=== PATIENT | male | born 1980 | race African-American/Black ===

== ENCOUNTER 2018-10-15 16:19 | Inpatient (IN) | payer OTHER ==
[2018-10-15 17:00] VITALS: BMI 21.0
--- NOTE | 2018-10-15 17:35 | HP ---
CIWA Score Nausea/Vomitin-Mild Nausea/No Vomiting Muscle Tremors: 4-Moderate,w/Arms Extend Anxiety: 4-Mod. Anxious/Guarded Agitation: 3 Paroxysmal Sweats: 1-Minimal Palms Moist Orientation: 1-Uncertain about Date Tacttile Disturbances: 0-None Auditory Disturbances: 0-None Visual Disturbances: 0-None Headache: 0-None Present CIWA-Ar Total Score: 14 - Admission Criteria OASAS Guidelines: Admission for Medically Managed Detox: Requires at least one of the followin. CIWA greater than 12 2. Seizures within the past 24 hours 3. Delirium tremens within the past 24 hours 4. Hallucinations within the past 24 hours 5. Acute intervention needed for co occurring medical disorder 6. Acute intervention needed for co occurring psychiatric disorder 7. Severe withdrawal that cannot be handled at a lower level of care (continued vomiting, continued diarrhea, abnormal vital signs) requiring intravenous medication and/or fluids 8. Admission ROS S - [facility] Chief Complaint: Alcohol withdrawal symptoms Allergies/Adverse Reactions: Allergies Allergy/AdvReac Type Severity Reaction Status Date / Time No Known Allergies Allergy Verified 10/15/18 17:12 History of Present Illness: 38 years old male with 20 years of alcohol dependence is seeking admission to detox. Patient has been to previous detox and reports 9 months of sobriety. Patient reports history of depression. He reports suicide attempt in 2012 and denies suicidal ideation at this time. Exam Limitations: No Limitations - Ebola screening Have you traveled outside of the country in the last 21 days: No Have you had contact with anyone from an Ebola affected area: No Have you been sick,other than usual withdrawal symptoms: No Do you have a fever: No - Review of Systems Constitutional: Chills, Loss of Appetite, Night Sweats, Changes in sleep EENT: reports: No Symptoms Reported Respiratory: reports: No Symptoms reported Cardiac: reports: No Symptoms Reported GI: reports: Nausea, Poor Appetite, Poor Fluid Intake, Abdominal cramping : reports: No Symptoms Reported Musculoskeletal: reports: Back Pain, Other (ankle pain) Integumentary: reports: Dryness, Flushing Neuro: reports: Headache, Tremors Endocrine: reports: No Symptoms Reported Hematology: reports: No Symptoms Reported Psychiatric: reports: Depressed Other Systems: Reviewed and Negative Patient History - Patient Medical History Hx Anemia: No Hx Asthma: No Hx Chronic Obstructive Pulmonary Disease (COPD): No Hx Cancer: No Hx Cardiac Disorders: No Hx Congestive Heart Failure: No Hx Hypertension: No Hx Hypercholesterolemia: No Hx Pacemaker: No HX Cerebrovascular Accident: No Hx Seizures: No Hx Dementia: No Hx Diabetes: No Hx Gastrointestinal Disorders: No Hx Genitourinary Disorders: No Hx Sexually Transmitted Disorders: No Hx Renal Disease (ESRD): No Hx Thyroid Disease: No Hx Human Immunodeficiency Virus (HIV): No (last 11/03) Hx Hepatitis C: No Hx Depression: Yes (Not on medication) Hx Suicide Attempt: Yes (Reports suicide in 2013. Denies suicidal ideation at this time) Hx Bipolar Disorder: No Hx Schizophrenia: Yes (Seroquel and Depakote) - Patient Surgical History Past Surgical History: Yes Hx Neurologic Surgery: No Hx Cataract Extraction: No Hx Cardiac Surgery: No Hx Lung Surgery: No Hx Abdominal Surgery: No Hx Appendectomy: No Hx Cholecystectomy: No Hx Genitourinary Surgery: No Hx Section: No Hx Orthopedic Surgery: No Other Surgical History: L:eft leg surgery 2014 Anesthesia Reaction: No - PPD History Previous Implant?: Yes Documented Results: Negative w/proof Implanted On Prior [facility] Admission?: Yes Date: 04/03/14 PPD to be Administered?: Yes - Reproductive History Patient is a Female of Child Bearing Age (11 -55 yrs old): No (Male) - Smoking Cessation Smoking history: Current every day smoker Have you smoked in the past 12 months: Yes Aproximately how many cigarettes per day: 10 Cigars Per Day: 0 Hx Chewing Tobacco Use: No Initiated information on smoking cessation: Yes 'Breaking Loose' booklet given: 10/15/18 - Substance & Tx. History Hx Alcohol Use: Yes Hx Substance Use: Yes Substance Use Type: Alcohol, Cocaine Hx Substance Use Treatment: Yes ([facility]) - Substances Abused Alcohol Route: Oral Frequency: Daily Amount used: 2 PINTS OF VODKA Age of first use: 17 Date of Last Use: 10/15/18 Cocaine Route: Smoking Frequency: Daily Amount used: $50-100 Age of first use: 27 Date of Last Use: 10/15/18 Family Disease History - Family Disease History Family Disease History: Heart Disease: Mother Admission Physical Exam BHS - Vital Signs Vital Signs: Vital Signs - 24 hr 10/15/18 16:55 Temperature 98.7 F Pulse Rate 86 Respiratory 18 Rate Blood Pressure 133/75 - Physical General Appearance: Yes: Moderate Distress, Tremorous, Sweating, Anxious HEENTM: Yes: EOMI, Normal ENT Inspection, Normal Voice, BRE Respiratory: Yes: Lungs Clear, Normal Breath Sounds, No Respiratory Distress Neck: Yes: Supple Breast: Yes: Breast Exam Deferred Cardiology: Yes: Regular Rhythm, Regular Rate Abdominal: Yes: Normal Bowel Sounds, Soft Genitourinary: Yes: Within Normal Limits Back: Yes: Normal Inspection Musculoskeletal: Yes: Within Normal Limits Extremities: Yes: Tremors Neurological: Yes: logger all round II-XII NML intact, Alert, Normal Mood/Affect Integumentary: Yes: Warm Lymphatic: Yes: Within Normal Limits - Diagnostic (1) Uncomplicated alcohol dependence Current Visit: Yes Status: Acute (2) Depression Current Visit: Yes Status: Chronic Qualifiers: Depression Type: unspecified Qualified Code(s): F32.9 - Major depressive disorder, single episode, unspecified (3) Cocaine dependence Current Visit: Yes Status: Chronic Qualifiers: Substance use status: uncomplicated Qualified Code(s): F14.20 - Cocaine dependence, uncomplicated (4) Nicotine dependence Current Visit: Yes Status: Chronic Qualifiers: Nicotine product type: cigarettes Substance use status: uncomplicated Qualified Code(s): F17.210 - Nicotine dependence, cigarettes, uncomplicated Cleared for Admission S - Detox or Rehab [facility] Level of Care: Medically Managed Detox Regimen/Protocol: Librium [facility] Breath Alcohol Content Breath Alcohol Content: 0 Urine Drug Screen - Results Drug Screen Negative: No Urine Drug Screen Results: NAMRATA-Cocaine
[2018-10-15] MEDS ORDERED: IBUPROFEN 400 MG TABLET (FP) PO PRN (17:59)
[2018-10-15] MEDS ORDERED: P-EPHED 60MG/TRIPROLIDI 2.5MG TABLET PO PRN (17:59)
[2018-10-15] MEDS ORDERED: chlordiazePOXIDE HCL 25 MG CAPSULE PO PRN (17:59)
[2018-10-15] MEDS ORDERED: MAGNESIUM CITRATE 300 ML BOTTLE PO PRN (17:59)
[2018-10-15] MEDS ORDERED: MENTHOL/PHENOL 1 EACH UD MM PRN (17:59)
[2018-10-15] MEDS ORDERED: LOPERAMIDE HCL 2 MG CAPSULE PO PRN (17:59)
[2018-10-15] MEDS ORDERED: MAGNESIUM HYDROX 2400MG/30ML ORAL SUSPENSION 30 ML CUP PO PRN (17:59)
[2018-10-15] MEDS ORDERED: MAG HYDROX/AL HYDROX/SIMETH 30 ML UNIT-DOSE CUP PO PRN (17:59)
[2018-10-15] MEDS ORDERED: NICOTINE POLACRILEX 2 MG GUM BC PRN (17:59)
[2018-10-15] MEDS ORDERED: ACETAMINOPHEN 325 MG TABLET (FP) PO PRN (17:59)
[2018-10-15] MEDS ORDERED: guaiFENesin/D-METHORPHAN HB 10 ML UNIT-DOSE CUPS PO PRN (17:59)
[2018-10-15] MEDS ORDERED: MELATONIN 5 MG TABLETS PO PRN (22:00)
[2018-10-15] MEDS ORDERED: THIAMINE HCL 100 MG TABLET (FP) PO SCH (22:00)
[2018-10-15] MEDS: chlordiazePOXIDE HCL 25 MG CAPSULE PO SCH (22:11)
[2018-10-16] MEDS: chlordiazePOXIDE HCL 25 MG CAPSULE PO SCH ×2 (06:06→10:31)
--- NOTE | 2018-10-16 08:49 | CONSULT ---
[facility] Psychiatric Consult - Data Date of interview: 10/16/18 Admission source: Self-referred Identifying data: Mr Thakkar is a 38 years old single black male, father of 2 children, unemployed with no source of income, homeless seeking detox treatment for alcohol and cocaine Substance Abuse History: Reports history of alcohol and cocaine use. Refer to addiction counselor's summary for further information Medical History: Unremarkable except for orthosurgry for fracture left leg in 2014. Smokes 10 cigarettes daily Psychiatric History: Reports that his first psychiatric contact was in 2010 when he was admitted to a hospital in [place] for auditory hallucinations , depression and suicidal ideations. He was diagnosed with schizoaffective Disorder, Bipolar type and started on psychotropic medications. Reports multiple subsequent admissions to various institutions including [facility] and most recently in 2013 to [facility]. Reports non adherence to OPD care and medications. Claims that he was on Seroquel 200 mg po BID and Depakote in the past. He is willing to resume Seroquel during this admission. Reports one previous suicidal attempt in 2012 by overdose on pills. At present, reports feeing depressed and sleeping poorly Physical/Sexual Abuse/Trauma History: Denies history of emotional, physical or sexual abuse s well as DV relationship. No service Mental Status Exam - Mental Status Exam Alert and Oriented to: Time, Place, Person Cognitive Function: Fair Patient Appearance: Well Groomed Mood: Depressed Affect: Appropriate Patient Behavior: Cooperative Speech Pattern: Clear Voice Loudness: Normal Thought Process: Intact, Goal Oriented Hallucinations: Denies Suicidal Ideation: Denies Homicidal Ideation: Denies Insight/Judgement: Poor Sleep: Poorly Appetite: Good Muscle strength/Tone: Normal Gait/Station: Normal Psychiatric Findings - Problem List ([place] 1, 2,3) (1) Schizoaffective disorder Current Visit: Yes Status: Chronic (2) Alcohol-induced mood disorder Current Visit: Yes Status: Acute (3) Alcohol-induced sleep disorder Current Visit: Yes Status: Acute (4) Uncomplicated alcohol dependence Current Visit: Yes Status: Acute (5) Cocaine dependence Current Visit: Yes Status: Acute Qualifiers: Substance use status: uncomplicated Qualified Code(s): F14.20 - Cocaine dependence, uncomplicated (6) Nicotine dependence Current Visit: Yes Status: Chronic Qualifiers: Nicotine product type: cigarettes Substance use status: uncomplicated Qualified Code(s): F17.210 - Nicotine dependence, cigarettes, uncomplicated - Initial Treatment Plan Initial Treatment Plan: 1) Start Seroquel 100 mg po HS(Reconsult for titration) . 2) Monitor progress
[2018-10-16] MEDS ORDERED: NICOTINE 14 MG/24 HOURS TOPICAL PATCH TD SCH (10:00)
[2018-10-16] MEDS ORDERED: PRENATAL VITAMINS W/ FOLIC ACID TABLET (FP) PO SCH (10:00)
[2018-10-16 11:17] LABS: ALBUMIN 3.6 g/dl (3.4-5.0); ALK PHOS 72 U/L (45-117); ANION GAP 5 MMOL/L (8-16); BILIRUBIN,TOTAL 0.3 mg/dL (0.2-1); BLOOD UREA NITROGEN 15 mg/dL (7-18); CHLORIDE 106 mmol/L (98-107); CO2 29 mmol/L (21-32); GLUCOSE,RANDOM 101 mg/dL (74-106); POTASSIUM 3.9 mmol/L (3.5-5.1); SGOT/AST 17 U/L (15-37); SGPT/ALT 23 U/L (13-61); SODIUM 140 mmol/L (136-145); TOT PROT 6.9 g/dl (6.4-8.2)
[2018-10-16 11:23] LABS: HEMATOCRIT 43.5 % (35.4-49); HEMOGLOBIN 14.4 GM/dL (11.7-16.9); MCH 27.2 pg (25.7-33.7); MCHC 33.1 g/dl (32.0-35.9); MEAN CELL VOLUME 82.2 fl (80-96); MEAN PLT VOLUME 8.6 fl (7.5-11.1); PLATELET COUNT 282 K/MM3 (134-434); RBC 5.29 M/mm3 (4.00-5.60); RDW 16.8 % (11.9-15.9); WHITE BLOOD COUNT 6.8 K/mm3 (4.0-10.0)
[2018-10-16 13:21] VITALS: BP 102/72; PULSE 73; TEMP 97.1
--- NOTE | 2018-10-16 14:15 | PN ---
S CIWA - CIWA Score Nausea/Vomitin-Mild Nausea/No Vomiting Muscle Tremors: 3 Anxiety: 1-Mildly Anxious Agitation: 2 Paroxysmal Sweats: 1-Minimal Palms Moist Orientation: 1-Uncertain about Date Tacttile Disturbances: 0-None Auditory Disturbances: 0-None Visual Disturbances: 0-None Headache: 2-Mild CIWA-Ar Total Score: 11 S Progress Note (SOAP) Subjective: headaches tremor sweating Objective: 10/16/18 14:15 Vital Signs Temperature 97.1 F L 10/16/18 13:20 Pulse Rate 73 10/16/18 13:20 Respiratory Rate 18 10/16/18 13:20 Blood Pressure 102/72 10/16/18 13:20 O2 Sat by Pulse Oximetry (%) Laboratory Last Values WBC 6.8 K/mm3 (4.0-10.0) 10/16/18 07:20 RBC 5.29 M/mm3 (4.00-5.60) 10/16/18 07:20 Hgb 14.4 GM/dL (11.7-16.9) 10/16/18 07:20 Hct 43.5 % (35.4-49) 10/16/18 07:20 MCV 82.2 fl (80-96) 10/16/18 07:20 MCH 27.2 pg (25.7-33.7) 10/16/18 07:20 MCHC 33.1 g/dl (32.0-35.9) 10/16/18 07:20 RDW 16.8 % (11.9-15.9) H 10/16/18 07:20 Plt Count 282 K/MM3 (134-434) D 10/16/18 07:20 MPV 8.6 fl (7.5-11.1) 10/16/18 07:20 Sodium 140 mmol/L (136-145) 10/16/18 07:20 Potassium 3.9 mmol/L (3.5-5.1) 10/16/18 07:20 Chloride 106 mmol/L (98-107) 10/16/18 07:20 Carbon Dioxide 29 mmol/L (21-32) 10/16/18 07:20 Anion Gap 5 MMOL/L (8-16) L 10/16/18 07:20 BUN 15 mg/dL (7-18) 10/16/18 07:20 Creatinine 1.0 mg/dL (0.55-1.3) 10/16/18 07:20 Creat Clearance w eGFR > 60 (>60) 10/16/18 07:20 Random Glucose 101 mg/dL (74-106) 10/16/18 07:20 Calcium 9.0 mg/dL (8.5-10.1) 10/16/18 07:20 Total Bilirubin 0.3 mg/dL (0.2-1) 10/16/18 07:20 AST 17 U/L (15-37) 10/16/18 07:20 ALT 23 U/L (13-61) 10/16/18 07:20 Alkaline Phosphatase 72 U/L (45-117) 10/16/18 07:20 Total Protein 6.9 g/dl (6.4-8.2) 10/16/18 07:20 Albumin 3.6 g/dl (3.4-5.0) 10/16/18 07:20 RPR Titer Nonreactive (NONREACTIVE) 10/16/18 07:20 lab noted Assessment: 10/16/18 14:16 withdrawal sx Plan: continue detox
--- NOTE | 2018-10-16 16:53 | DS ---
[facility] Detox Discharge Summary Admission Date: 10/15/18 Discharge Date: 10/16/18 - History Present History: Alcohol Dependence, Cocaine Dependence Additional Comments: Patient admitted with alcohol withdrawal symptoms. Pertinent Past History: Patient w/ a hx of alcohol use disorder requesting alcohol detox. Patient w/ co-occurring cocaine and nicotine use. Hx depression w/o thoughts of harming self or others. - Physical Exam Results Vital Signs: Vital Signs Temperature 97.1 F L 10/16/18 13:20 Pulse Rate 73 10/16/18 13:20 Respiratory Rate 18 10/16/18 13:20 Blood Pressure 102/72 10/16/18 13:20 O2 Sat by Pulse Oximetry (%) Pertinent Admission Physical Exam Findings: Patient w/ a hx of alcohol use disorder admitted for alcohol detox. Patient w/ co-occurring cocaine and nicotine use. Hx depression w/o thoughts of harming self or others. Laboratory Last Values WBC 6.8 K/mm3 (4.0-10.0) 10/16/18 07:20 RBC 5.29 M/mm3 (4.00-5.60) 10/16/18 07:20 Hgb 14.4 GM/dL (11.7-16.9) 10/16/18 07:20 Hct 43.5 % (35.4-49) 10/16/18 07:20 MCV 82.2 fl (80-96) 10/16/18 07:20 MCH 27.2 pg (25.7-33.7) 10/16/18 07:20 MCHC 33.1 g/dl (32.0-35.9) 10/16/18 07:20 RDW 16.8 % (11.9-15.9) H 10/16/18 07:20 Plt Count 282 K/MM3 (134-434) D 10/16/18 07:20 MPV 8.6 fl (7.5-11.1) 10/16/18 07:20 Sodium 140 mmol/L (136-145) 10/16/18 07:20 Potassium 3.9 mmol/L (3.5-5.1) 10/16/18 07:20 Chloride 106 mmol/L (98-107) 10/16/18 07:20 Carbon Dioxide 29 mmol/L (21-32) 10/16/18 07:20 Anion Gap 5 MMOL/L (8-16) L 10/16/18 07:20 BUN 15 mg/dL (7-18) 10/16/18 07:20 Creatinine 1.0 mg/dL (0.55-1.3) 10/16/18 07:20 Creat Clearance w eGFR > 60 (>60) 10/16/18 07:20 Random Glucose 101 mg/dL (74-106) 10/16/18 07:20 Calcium 9.0 mg/dL (8.5-10.1) 10/16/18 07:20 Total Bilirubin 0.3 mg/dL (0.2-1) 10/16/18 07:20 AST 17 U/L (15-37) 10/16/18 07:20 ALT 23 U/L (13-61) 10/16/18 07:20 Alkaline Phosphatase 72 U/L (45-117) 10/16/18 07:20 Total Protein 6.9 g/dl (6.4-8.2) 10/16/18 07:20 Albumin 3.6 g/dl (3.4-5.0) 10/16/18 07:20 RPR Titer Nonreactive (NONREACTIVE) 10/16/18 07:20 Labs reviewed. - Treatment Hospital Course: Detox Protocol Followed (Patient did noot complete detox.), Discharged Condition Good (Alert and oriented upon discharge. Gait steady w/ use of own personal cane.) - Medication Discharge Medications: Ambulatory Orders Quetiapine Fumarate [Seroquel -] 200 mg PO BID #60 tablet 12/24/14 - Diagnosis (1) Alcohol dependence with uncomplicated withdrawal Current Visit: Yes Status: Acute (2) Cocaine dependence Current Visit: Yes Status: Chronic Qualifiers: Substance use status: uncomplicated Qualified Code(s): F14.20 - Cocaine dependence, uncomplicated (3) Nicotine dependence Current Visit: Yes Status: Chronic Qualifiers: Nicotine product type: cigarettes Substance use status: uncomplicated Qualified Code(s): F17.210 - Nicotine dependence, cigarettes, uncomplicated - AMA Did Patient Leave Against Medical Advice: Yes (Refused to stay and offers of referral declined. )
[2018-10-16] MEDS ORDERED: chlordiazePOXIDE HCL 25 MG CAPSULE PO SCH (23:00)
[2018-10-17] MEDS ORDERED: chlordiazePOXIDE 5 MG CAPSULE PO SCH (23:00)
[2018-10-18] MEDS ORDERED: chlordiazePOXIDE HCL 10 MG CAPSULE PO SCH (23:00)
== END 2018-10-16 16:52 | disposition left against medical advice (07) | DRG 770 ==
LOC: YASAS 16:19 → Y3N 18:16
PROVIDERS: ADMIT Neuromusculoskeletal Medicine & OMM; ATTEND Neuromusculoskeletal Medicine & OMM
PROC: HZ2ZZZZ Detoxification Services for Substance Abuse Treatment (ICD-10-PCS; principal; 2018-10-15)
DX: F10.230 Alcohol dependence with withdrawal, uncomplicated (principal); F10.24 Alcohol dependence with alcohol-induced mood disorder; F10.282 Alcohol dependence with alcohol-induced sleep disorder; F14.20 Cocaine dependence, uncomplicated; F17.210 Nicotine dependence, cigarettes, uncomplicated; F25.9 Schizoaffective disorder, unspecified; F32.9 Major depressive disorder, single episode, unspecified; Z91.5 Personal history of self-harm
CPT/HCPCS: 36415; 80053; 85027; 86593; 87389

== ENCOUNTER 2019-06-07 11:23 | Inpatient (IN) | payer SELFPAY ==
[2019-06-07 11:57] VITALS: BMI 24.3
--- NOTE | 2019-06-07 12:54 | HP ---
CIWA Score Nausea/Vomitin-No Nausea/No Vomiting Muscle Tremors: None Anxiety: 2 Agitation: 2 Paroxysmal Sweats: No Perspiration Orientation: 0-Oriented Tacttile Disturbances: 0-None Auditory Disturbances: 2-Mild Harshness/Frighten Visual Disturbances: 0-None Headache: 2-Mild CIWA-Ar Total Score: 8 - Admission Criteria OASAS Guidelines: Admission for Medically Managed Detox: Requires at least one of the followin. CIWA greater than 12 2. Seizures within the past 24 hours 3. Delirium tremens within the past 24 hours 4. Hallucinations within the past 24 hours 5. Acute intervention needed for co occurring medical disorder 6. Acute intervention needed for co occurring psychiatric disorder 7. Severe withdrawal that cannot be handled at a lower level of care (continued vomiting, continued diarrhea, abnormal vital signs) requiring intravenous medication and/or fluids 8. Admission ROS S - [facility] Chief Complaint: alcohol detox Allergies/Adverse Reactions: Allergies Allergy/AdvReac Type Severity Reaction Status Date / Time No Known Allergies Allergy Verified 06/07/19 11:50 History of Present Illness: Patient is a 39 yo M with hx of schizophrenia, depression, presenting here for alcohol detox. Drinks 1 pint of vodka daily, with 6-12oz of beer daily. Has been drinking for 20 years. Last drink yesterday around 10pm. No hx of seizures. Multiple blackouts, last one being 6 months ago. Was here yesterday but says he was denied admission due to no rooms. Says he was referred here through his parole. Says he wants to get cleaned up. Last detox per patient was in September. Currently unemployed. Lives in an apartment with a roommate. Also smokes crack/cocaine daily. 60-100 dollars worth. Smokies 1/2-1 pack a day cigarettes. Exam Limitations: No Limitations - Ebola screening Have you traveled outside of the country in the last 21 days: No Have you had contact with anyone from an Ebola affected area: No Do you have a fever: No - Review of Systems Constitutional: Loss of Appetite Respiratory: denies: Shortness of Breath Cardiac: denies: Chest Pain, Palpitations Patient History - Patient Medical History Hx Anemia: No Hx Asthma: No Hx Chronic Obstructive Pulmonary Disease (COPD): No Hx Cancer: No Hx Cardiac Disorders: No Hx Congestive Heart Failure: No Hx Hypertension: No Hx Hypercholesterolemia: No Hx Pacemaker: No HX Cerebrovascular Accident: No Hx Seizures: No Hx Dementia: No Hx Diabetes: No Hx Gastrointestinal Disorders: No Hx Genitourinary Disorders: No Hx Sexually Transmitted Disorders: No Hx Renal Disease (ESRD): No Hx Thyroid Disease: No Hx Human Immunodeficiency Virus (HIV): No (last 11/03) Hx Hepatitis C: No Hx Depression: Yes (Not on medication) Hx Suicide Attempt: Yes (Reports suicide in 2012. Denies suicidal ideation at this time) Hx Bipolar Disorder: No Hx Schizophrenia: Yes (Seroquel and Depakote) - Patient Surgical History Past Surgical History: Yes Hx Neurologic Surgery: No Hx Cataract Extraction: No Hx Cardiac Surgery: No Hx Lung Surgery: No Hx Breast Surgery: No Hx Breast Biopsy: No Hx Abdominal Surgery: No Hx Appendectomy: No Hx Cholecystectomy: No Hx Genitourinary Surgery: No Hx Section: No Hx Orthopedic Surgery: No Other Surgical History: L:eft leg surgery 2014 Anesthesia Reaction: No - PPD History Date: 04/03/14 - Smoking Cessation Smoking history: Current every day smoker Have you smoked in the past 12 months: Yes Aproximately how many cigarettes per day: 10 Cigars Per Day: 0 Hx Chewing Tobacco Use: No Initiated information on smoking cessation: Yes 'Breaking Loose' booklet given: 06/07/19 - Substances abused Alcohol Substance route: Oral Frequency: Daily Amount used: 6pks & 2 pints vodka Age of first use: 15 Date of last use: 06/06/19 Crack Substance route: Smoking Frequency: Daily Amount used: $50-$100 Age of first use: 27 Date of last use: 06/06/19 Family Disease History - Family Disease History Family Disease History: Heart Disease: Mother Admission Physical Exam S - Vital Signs Vital Signs: Vital Signs - 24 hr 06/07/19 11:50 Temperature 97.7 F Pulse Rate 70 Respiratory 20 Rate Blood Pressure 122/71 - Physical General Appearance: Yes: No Apparent Distress Respiratory: Yes: No Respiratory Distress, No Accessory Muscle Use Cardiology: Yes: Regular Rhythm, S1, S2 Abdominal: Yes: Non Tender, Soft Integumentary: Yes: Within Normal Limits - Diagnostic (1) Alcohol dependence Current Visit: No Status: Acute (2) Alcohol dependence with uncomplicated withdrawal Current Visit: No Status: Acute (3) Cocaine dependence Current Visit: No Status: Chronic Qualifiers: Substance use status: uncomplicated Qualified Code(s): F14.20 - Cocaine dependence, uncomplicated (4) Depression Current Visit: No Status: Chronic Qualifiers: Depression Type: unspecified Qualified Code(s): F32.9 - Major depressive disorder, single episode, unspecified (5) Nicotine dependence Current Visit: No Status: Chronic Qualifiers: Nicotine product type: cigarettes Substance use status: uncomplicated Qualified Code(s): F17.210 - Nicotine dependence, cigarettes, uncomplicated (6) Schizoaffective disorder Current Visit: No Status: Chronic Breathalyzer - Breathalyzer Breathalyzer: 0 Urine Drug Screen - Test Device Lot number: [id number] Expiration date: 02/17/21 - Control Is test valid?: Yes - Results Drug screen NEGATIVE: No Urine drug screen results: THC-Marijuana, NAMRATA-Cocaine Inpatient Rehab Admission - Rehab Decision to Admit Inpatient rehab admission?: No
[2019-06-07] MEDS ORDERED: METHOCARBAMOL 500 MG TABLET PO PRN (13:06)
[2019-06-07] MEDS ORDERED: MAGNESIUM HYDROX 2400MG/30ML ORAL SUSPENSION 30 ML CUP PO PRN (13:06)
[2019-06-07] MEDS ORDERED: MENTHOL/PHENOL 1 EACH UD MM PRN (13:06)
[2019-06-07] MEDS ORDERED: MELATONIN 5 MG TABLETS PO PRN (13:06)
[2019-06-07] MEDS ORDERED: ACETAMINOPHEN 325 MG TABLET (FP) PO PRN ×2 (13:06)
[2019-06-07] MEDS ORDERED: BISMUTH SUBSALICYLATE 524 MG/30 ML UD PO PRN (13:06)
[2019-06-07] MEDS ORDERED: MAG HYDROX/AL HYDROX/SIMETH 30 ML UNIT-DOSE CUP PO PRN (13:06)
[2019-06-07] MEDS ORDERED: chlordiazePOXIDE HCL 25 MG CAPSULE PO PRN (13:06)
[2019-06-07] MEDS ORDERED: MAGNESIUM CITRATE 300 ML BOTTLE PO PRN (13:06)
[2019-06-07] MEDS ORDERED: IBUPROFEN 400 MG TABLET (FP) PO PRN (13:06)
[2019-06-07] MEDS ORDERED: hydrOXYzine PAMOATE 25 MG CAPSULE (FP) PO PRN (13:06)
--- NOTE | 2019-06-07 13:53 | PN ---
Teaching Attending Note Name of Resident: Jorgito Diehl ATTENDING PHYSICIAN STATEMENT I saw and evaluated the patient. I reviewed the resident's note and discussed the case with the resident. I agree with the resident's findings and plan as documented. SUBJECTIVE: 39 yo male with h/o cocaine and alcohol use disorder, here for detox drinks vodka and beer daily OBJECTIVE: Vital Signs - 24 hr 06/07/19 11:50 Temperature 97.7 F Pulse Rate 70 Respiratory 20 Rate Blood Pressure 122/71 alert and oriented ASSESSMENT AND PLAN: admit for AUD- librium detox cocaine use disorder- clondine and vistaril
[2019-06-07] MEDS ORDERED: cloNIDine HCL 0.1 MG TABLET PO PRN (14:08)
[2019-06-07 17:16] LABS: ALBUMIN 3.5 g/dl (3.4-5.0); BILIRUBIN,TOTAL 0.7 mg/dL (0.2-1); BLOOD UREA NITROGEN 9.2 mg/dL (7-18); CALCIUM 9.5 mg/dL (8.5-10.1); CREATININE 1.3 mg/dL (0.55-1.3); POTASSIUM 4.6 mmol/L (3.5-5.1)
[2019-06-07 17:25] LABS: HEMATOCRIT 45.6 % (35.4-49); HEMOGLOBIN 14.5 GM/dL (11.7-16.9); MCH 26.3 pg (25.7-33.7); MCHC 31.8 g/dl (32.0-35.9); MEAN CELL VOLUME 82.6 fl (80-96); MEAN PLT VOLUME 9.3 fl (7.5-11.1); PLATELET COUNT 264 K/MM3 (134-434); RBC 5.52 M/mm3 (4.00-5.60); RDW 16.3 % (11.9-15.9); WHITE BLOOD COUNT 6.3 K/mm3 (4.0-10.0)
[2019-06-07] MEDS: chlordiazePOXIDE HCL 25 MG CAPSULE PO SCH ×2 (17:27→22:20)
[2019-06-07] MEDS: THIAMINE HCL 100 MG TABLET (FP) PO SCH (22:20)
[2019-06-08] MEDS: chlordiazePOXIDE HCL 25 MG CAPSULE PO SCH ×4 (05:37→22:34)
[2019-06-08] MEDS: PRENATAL VITAMINS W/ FOLIC ACID TABLET (FP) PO SCH (10:19)
--- NOTE | 2019-06-08 11:04 | CONSULT ---
[facility] Psychiatric Consult - Data Date of interview: 06/08/19 Admission source: [facility] Identifying data: Patient is a 39 year old single male, father of two, unemployed, domiciled, and is not receiving any financial assistance. This is one multiple admissions for patient. Patient admitted to for alcohol and cocaine dependence. Substance Abuse History: Smoking Cessation. Smoking history: Current every day smoker. Have you smoked in the past 12 months: Yes. Aproximately how many cigarettes per day: 10. Cigars Per Day: 0. Hx Chewing Tobacco Use: No. Initiated information on smoking cessation: Yes. 'Breaking Loose' booklet given : 06/07/19. - Substances abused. Alcohol. Substance route: Oral. Frequency: Daily. Amount used: 6pks & 2 pints vodka. Age of first use: 15. Date of last use: 06/06/19. Crack. Substance route: Smoking. Frequency: Daily. Amount used: $50-$100. Age of first use: 27. Date of last use: Medical History: Left leg surgury in 2015. Psychiatric History: Patient reports history of psychiatric hospitalizations most recently in 2016 at [facility] for depression and hearing voices. Diagnosis of schizoaffective, bipolar type. He is also known to [facility] and [facility]. Mr. Thakkar denies history of suicide attempt. Patient is not currently under the care of a psychiatrist. Reports last seeing a psychiatrist while in [facility] last month due to violating his parole. While in [facility] he was prescribed seroquel 200mg daily + 300mg HS + Depakote 1000. Reports most recently taking his medications two days ago. At present patient denies auditory/visual hallucinations, suicidal/homicidal ideation. Physical/Sexual Abuse/Trauma History: denies. Mental Status Exam - Mental Status Exam Alert and Oriented to: Time, Place, Person Cognitive Function: Good Patient Appearance: Well Groomed Mood: Euthymic Affect: Mood Congruent Patient Behavior: Cooperative Speech Pattern: Appropriate Voice Loudness: Normal Thought Process: Goal Oriented Thought Disorder: Not Present Hallucinations: Denies Suicidal Ideation: Denies Homicidal Ideation: Denies Insight/Judgement: Poor Sleep: Fair Appetite: Fair Muscle strength/Tone: Normal Gait/Station: Normal Psychiatric Findings - Problem List ([place] 1, 2,3) (1) Alcohol dependence Current Visit: Yes Status: Acute (2) Schizoaffective disorder Current Visit: Yes Status: Chronic Qualifiers: Schizoaffective disorder type: bipolar Qualified Code(s): F25.0 - Schizoaffective disorder, bipolar type (3) Cocaine dependence Current Visit: Yes Status: Chronic Qualifiers: Substance use status: uncomplicated Qualified Code(s): F14.20 - Cocaine dependence, uncomplicated - Initial Treatment Plan Initial Treatment Plan: Psychoeducation provided. Detoxification in progress. Will order Seroquel 200mg HS + Depakote 500mg HS (reduced dosage of both medications as per patient's request). Patient also refusing to accept seroquel morning dose due to risk of sedation.
--- NOTE | 2019-06-08 15:18 | PN ---
S CIWA - CIWA Score Nausea/Vomitin-No Nausea/No Vomiting Muscle Tremors: 2 Anxiety: 2 Agitation: 1-Slight > Activity Paroxysmal Sweats: 1-Minimal Palms Moist Orientation: 0-Oriented Tacttile Disturbances: 0-None Auditory Disturbances: 0-None Visual Disturbances: 0-None Headache: 0-None Present CIWA-Ar Total Score: 6 S Progress Note (SOAP) Subjective: doing well with librium detox regimen sitting on bed eating breakfast ambulating on hallway social with peers in day room Objective: 06/08/19 15:16 Vital Signs Temperature 97.6 F 06/08/19 10:00 Pulse Rate 71 06/08/19 10:00 Respiratory Rate 16 06/08/19 10:00 Blood Pressure 100/58 L 06/08/19 10:00 O2 Sat by Pulse Oximetry (%) Laboratory Last Values WBC 6.3 K/mm3 (4.0-10.0) 06/07/19 13:30 RBC 5.52 M/mm3 (4.00-5.60) 06/07/19 13:30 Hgb 14.5 GM/dL (11.7-16.9) 06/07/19 13:30 Hct 45.6 % (35.4-49) 06/07/19 13:30 MCV 82.6 fl (80-96) 06/07/19 13:30 MCH 26.3 pg (25.7-33.7) 06/07/19 13:30 MCHC 31.8 g/dl (32.0-35.9) L 06/07/19 13:30 RDW 16.3 % (11.9-15.9) H 06/07/19 13:30 Plt Count 264 K/MM3 (134-434) 06/07/19 13:30 MPV 9.3 fl (7.5-11.1) 06/07/19 13:30 Sodium 141 mmol/L (136-145) 06/07/19 13:30 Potassium 4.6 mmol/L (3.5-5.1) 06/07/19 13:30 Chloride 106 mmol/L (98-107) 06/07/19 13:30 Carbon Dioxide 31 mmol/L (21-32) 06/07/19 13:30 Anion Gap 4 MMOL/L (8-16) L 06/07/19 13:30 BUN 9.2 mg/dL (7-18) 06/07/19 13:30 Creatinine 1.3 mg/dL (0.55-1.3) 06/07/19 13:30 Est GFR (CKD-EPI)AfAm 80.79 06/07/19 13:30 Est GFR (CKD-EPI)NonAf 69.70 06/07/19 13:30 Random Glucose 69 mg/dL (74-106) L 06/07/19 13:30 Calcium 9.5 mg/dL (8.5-10.1) 06/07/19 13:30 Total Bilirubin 0.7 mg/dL (0.2-1) 06/07/19 13:30 AST 36 U/L (15-37) 06/07/19 13:30 ALT 48 U/L (13-61) 06/07/19 13:30 Alkaline Phosphatase 62 U/L (45-117) 06/07/19 13:30 Total Protein 7.0 g/dl (6.4-8.2) 06/07/19 13:30 Albumin 3.5 g/dl (3.4-5.0) 06/07/19 13:30 RPR Titer Nonreactive (NONREACTIVE) 06/07/19 13:30 HIV 1&2 Antibody Screen Negative 06/07/19 13:30 HIV P24 Antigen Negative 06/07/19 13:30 lab noted Assessment: 06/08/19 15:17 alcohol withdrawal sx Plan: continue librium detox regimen
[2019-06-08] MEDS ORDERED: QUEtiapine FUMARATE 300 MG TABLET PO SCH (22:00)
[2019-06-08] MEDS ORDERED: DIVALPROEX SODIUM 500 MG TABLET E.C. PO SCH (22:00)
[2019-06-08] MEDS ORDERED: QUEtiapine FUMARATE 200 MG TABLET PO SCH (22:00)
[2019-06-08] MEDS: THIAMINE HCL 100 MG TABLET (FP) PO SCH (22:33)
[2019-06-09] MEDS ORDERED: chlordiazePOXIDE HCL 25 MG CAPSULE PO SCH (05:00)
[2019-06-09] MEDS: chlordiazePOXIDE 5 MG CAPSULE PO SCH ×2 (05:37→10:08)
[2019-06-09 09:34] VITALS: BP 104/69; PULSE 81; TEMP 98.4
[2019-06-09] MEDS: PRENATAL VITAMINS W/ FOLIC ACID TABLET (FP) PO SCH (10:08)
--- NOTE | 2019-06-09 12:54 | PN ---
[facility] CIWA - CIWA Score Nausea/Vomitin-No Nausea/No Vomiting Muscle Tremors: 1-None Visible, but [place] Anxiety: 1-Mildly Anxious Agitation: 1-Slight > Activity Paroxysmal Sweats: No Perspiration Orientation: 0-Oriented Tacttile Disturbances: 0-None Auditory Disturbances: 0-None Visual Disturbances: 0-None Headache: 1-Very Mild CIWA-Ar Total Score: 4 S Progress Note (SOAP) Subjective: alert,interrupted sleep Objective: 06/09/19 12:51 Vital Signs Temperature 98.4 F 06/09/19 09:33 Pulse Rate 81 06/09/19 09:33 Respiratory Rate 16 06/09/19 09:33 Blood Pressure 104/69 06/09/19 09:33 O2 Sat by Pulse Oximetry (%) 06/09/19 12:51 Laboratory Last Values WBC 6.3 K/mm3 (4.0-10.0) 06/07/19 13:30 RBC 5.52 M/mm3 (4.00-5.60) 06/07/19 13:30 Hgb 14.5 GM/dL (11.7-16.9) 06/07/19 13:30 Hct 45.6 % (35.4-49) 06/07/19 13:30 MCV 82.6 fl (80-96) 06/07/19 13:30 MCH 26.3 pg (25.7-33.7) 06/07/19 13:30 MCHC 31.8 g/dl (32.0-35.9) L 06/07/19 13:30 RDW 16.3 % (11.9-15.9) H 06/07/19 13:30 Plt Count 264 K/MM3 (134-434) 06/07/19 13:30 MPV 9.3 fl (7.5-11.1) 06/07/19 13:30 Sodium 141 mmol/L (136-145) 06/07/19 13:30 Potassium 4.6 mmol/L (3.5-5.1) 06/07/19 13:30 Chloride 106 mmol/L (98-107) 06/07/19 13:30 Carbon Dioxide 31 mmol/L (21-32) 06/07/19 13:30 Anion Gap 4 MMOL/L (8-16) L 06/07/19 13:30 BUN 9.2 mg/dL (7-18) 06/07/19 13:30 Creatinine 1.3 mg/dL (0.55-1.3) 06/07/19 13:30 Est GFR (CKD-EPI)AfAm 80.79 06/07/19 13:30 Est GFR (CKD-EPI)NonAf 69.70 06/07/19 13:30 Random Glucose 69 mg/dL (74-106) L 06/07/19 13:30 Calcium 9.5 mg/dL (8.5-10.1) 06/07/19 13:30 Total Bilirubin 0.7 mg/dL (0.2-1) 06/07/19 13:30 AST 36 U/L (15-37) 06/07/19 13:30 ALT 48 U/L (13-61) 06/07/19 13:30 Alkaline Phosphatase 62 U/L (45-117) 06/07/19 13:30 Total Protein 7.0 g/dl (6.4-8.2) 06/07/19 13:30 Albumin 3.5 g/dl (3.4-5.0) 06/07/19 13:30 RPR Titer Nonreactive (NONREACTIVE) 06/07/19 13:30 HIV 1&2 Antibody Screen Negative 06/07/19 13:30 HIV P24 Antigen Negative 06/07/19 13:30 Assessment: 06/09/19 12:52 patient is stable, Plan: patient is stable,would like to go home due to personal emergency,discharge in good condition,follow up with out patient program as arrangement
--- NOTE | 2019-06-09 13:01 | DS ---
[facility] Detox Discharge Summary Admission Date: 06/07/19 Discharge Date: 06/09/19 - History Present History: Alcohol Dependence, Cocaine Dependence Additional Comments: patient is stable for discharge today due to his emergency personal problem, will follow up with out patient program ,left unit in [facility],has all medication at homeble and good condition,no suicidal,no homicidal Pertinent Past History: schizoaffective disorder - Physical Exam Results Vital Signs: Vital Signs Temperature 98.4 F 06/09/19 09:33 Pulse Rate 81 06/09/19 09:33 Respiratory Rate 16 06/09/19 09:33 Blood Pressure 104/69 06/09/19 09:33 O2 Sat by Pulse Oximetry (%) Pertinent Admission Physical Exam Findings: withdrawal signs and symptom Vital Signs Temperature 98.4 F 06/09/19 09:33 Pulse Rate 81 06/09/19 09:33 Respiratory Rate 16 06/09/19 09:33 Blood Pressure 104/69 06/09/19 09:33 O2 Sat by Pulse Oximetry (%) Laboratory Last Values WBC 6.3 K/mm3 (4.0-10.0) 06/07/19 13:30 RBC 5.52 M/mm3 (4.00-5.60) 06/07/19 13:30 Hgb 14.5 GM/dL (11.7-16.9) 06/07/19 13:30 Hct 45.6 % (35.4-49) 06/07/19 13:30 MCV 82.6 fl (80-96) 06/07/19 13:30 MCH 26.3 pg (25.7-33.7) 06/07/19 13:30 MCHC 31.8 g/dl (32.0-35.9) L 06/07/19 13:30 RDW 16.3 % (11.9-15.9) H 06/07/19 13:30 Plt Count 264 K/MM3 (134-434) 06/07/19 13:30 MPV 9.3 fl (7.5-11.1) 06/07/19 13:30 Sodium 141 mmol/L (136-145) 06/07/19 13:30 Potassium 4.6 mmol/L (3.5-5.1) 06/07/19 13:30 Chloride 106 mmol/L (98-107) 06/07/19 13:30 Carbon Dioxide 31 mmol/L (21-32) 06/07/19 13:30 Anion Gap 4 MMOL/L (8-16) L 06/07/19 13:30 BUN 9.2 mg/dL (7-18) 06/07/19 13:30 Creatinine 1.3 mg/dL (0.55-1.3) 06/07/19 13:30 Est GFR (CKD-EPI)AfAm 80.79 06/07/19 13:30 Est GFR (CKD-EPI)NonAf 69.70 06/07/19 13:30 Random Glucose 69 mg/dL (74-106) L 06/07/19 13:30 Calcium 9.5 mg/dL (8.5-10.1) 06/07/19 13:30 Total Bilirubin 0.7 mg/dL (0.2-1) 06/07/19 13:30 AST 36 U/L (15-37) 06/07/19 13:30 ALT 48 U/L (13-61) 06/07/19 13:30 Alkaline Phosphatase 62 U/L (45-117) 06/07/19 13:30 Total Protein 7.0 g/dl (6.4-8.2) 06/07/19 13:30 Albumin 3.5 g/dl (3.4-5.0) 06/07/19 13:30 RPR Titer Nonreactive (NONREACTIVE) 06/07/19 13:30 HIV 1&2 Antibody Screen Negative 06/07/19 13:30 HIV P24 Antigen Negative 06/07/19 13:30 - Treatment Hospital Course: Detox Protocol Followed, Detoxed Safely, Responded well, Discharged Condition Good Patient has Accepted a Rehab Referral to: declined - Medication Discharge Medications: Ambulatory Orders Divalproex *ER* [Depakote *ER* -] 500 mg PO DAILY 06/06/19 Quetiapine Fumarate [Seroquel -] 200 mg PO DAILY 06/06/19 Quetiapine Fumarate [Seroquel -] 300 mg PO HS 06/06/19 - Diagnosis (1) Alcohol dependence Current Visit: Yes Status: Acute (2) Cocaine dependence Current Visit: Yes Status: Chronic Qualifiers: Substance use status: uncomplicated Qualified Code(s): F14.20 - Cocaine dependence, uncomplicated (3) Schizoaffective disorder Current Visit: Yes Status: Chronic Qualifiers: Schizoaffective disorder type: bipolar Qualified Code(s): F25.0 - Schizoaffective disorder, bipolar type
[2019-06-10] MEDS ORDERED: chlordiazePOXIDE HCL 10 MG CAPSULE PO PRN
[2019-06-10] MEDS ORDERED: chlordiazePOXIDE HCL 10 MG CAPSULE PO SCH (05:00)
== END 2019-06-09 13:22 | disposition home or self-care (01) | DRG 774 ==
LOC: YASAS 11:23 → Y3N 13:16
PROVIDERS: ADMIT Surgery; ATTEND Surgery
PROC: HZ2ZZZZ Detoxification Services for Substance Abuse Treatment (ICD-10-PCS; principal; 2019-06-09)
DX: F10.230 Alcohol dependence with withdrawal, uncomplicated (principal); F14.20 Cocaine dependence, uncomplicated; F17.210 Nicotine dependence, cigarettes, uncomplicated; F25.0 Schizoaffective disorder, bipolar type; F32.9 Major depressive disorder, single episode, unspecified; Z91.5 Personal history of self-harm
CPT/HCPCS: 36415; 80053; 85027; 86593; 87389